=== PATIENT | female | born 1935 | race Caucasian/White ===

== ENCOUNTER → 2018-11-20 09:44 | Outpatient (CLI) | payer MEDICARE ==
[2018-11-20 10:40] LABS: APPEARANCE CLEAR (CLEAR); BILIRUBIN NEGATIVE (NEGATIVE); COLOR YELLOW (YELLOW); GLUCOSE NEGATIVE (NEGATIVE); KETONE NEGATIVE (NEGATIVE); NITRITE NEGATIVE (NEGATIVE); PROTEIN NEGATIVE (NEGATIVE); UROBILINOGEN NORMAL (NORMAL)
== END | disposition home or self-care (01) ==
LOC: D.LABREF 09:44
PROVIDERS: ATTEND Family Medicine
DX: R30.0 Dysuria (principal)

== ENCOUNTER → 2018-11-21 13:47 | Outpatient (CLI) | payer MEDICARE | END | disposition home or self-care (01) | LOC: D.CT 13:47 | PROVIDERS: ATTEND Family Medicine | DX: R51 Headache (principal); R41.0 Disorientation, unspecified ==